=== PATIENT | female | born 1930 | race Caucasian/White ===

== ENCOUNTER 2018-11-13 11:59 | Inpatient (IN) | payer OTHER, MEDICARE ==
[~2018-11-13] VITALS: Ht 149.9 cm; Wt 92.1 kg
[2018-11-13] MEDS ORDERED: ONDANSETRON 4MG/2ML VIAL (J2405) IV ONE (13:00)
[2018-11-13] MEDS ORDERED: MULTCAP PO (13:06)
[2018-11-13] MEDS ORDERED: ELIQ5TAB PO (13:06)
[2018-11-13] MEDS ORDERED: HYDR12.55 PO (13:06)
[2018-11-13] MEDS ORDERED: PURE500C5 PO (13:06)
[2018-11-13] MEDS ORDERED: CIDA500T2 PO (13:06)
[2018-11-13] MEDS ORDERED: HUMA100I5 SC (13:06)
[2018-11-13] MEDS ORDERED: INVO100T PO (13:06)
[2018-11-13] MEDS ORDERED: SYNT112T2 PO (13:06)
[2018-11-13] MEDS ORDERED: LISI10TA4 PO (13:06)
[2018-11-13] MEDS ORDERED: TOPR100T PO (13:06)
[2018-11-13] MEDS ORDERED: TRIC145T22 PO (13:06)
[2018-11-13] MEDS ORDERED: D 101000 PO (13:06)
[2018-11-13] MEDS ORDERED: CALC1TAB53 PO (13:06)
[2018-11-13] MEDS ORDERED: ISOS30TA4 PO (13:06)
[2018-11-13] MEDS ORDERED: B COTAB3 PO (13:06)
[2018-11-13] MEDS ORDERED: DIAZ2TAB PO (13:06)
[2018-11-13] MEDS ORDERED: NITR0.4S14 SL (13:06)
[2018-11-13] MEDS ORDERED: LANTINJ4 SC (13:06)
[2018-11-13] MEDS ORDERED: VITA-157 PO (13:06)
[2018-11-13] MEDS: fentaNYL 100 MCG/2 ML INJECTION (J3010) IV PRN ×2 (13:23→15:02)
[2018-11-13] MEDS ORDERED: ISOVUE-370 76% 100ML VIAL (Q9967) As Ordered ONE (13:31)
[2018-11-13 13:39] LABS: HEMATOCRIT 48.2 % (36.0-47.0); HEMOGLOBIN 15.7 g/dl (12.0-15.5); MEAN CORPUSCULAR HEMOGLOBIN 29.3 pg (27.0-33.0); MEAN CORPUSCULAR HGB CONC 32.6 g/dl (32.0-36.5); MEAN CORPUSCULAR VOLUME 90.1 fl (80.0-96.0); PLATELET COUNT, AUTOMATED 294 10^3/uL (150-450); RED BLOOD COUNT 5.35 10^6/uL (4.00-5.40); WHITE BLOOD COUNT 12.8 10^3/uL (4.0-10.0)
--- NOTE | 2018-11-13 14:31 | REP ---
LEFT FOREARM TWO VIEWS: Two views of the left forearm are performed. There is a fracture of the mid to distal radius with posteromedial angulation. There is a fracture of the mid to distal ulna with overriding and posterior displacement, with posteromedial angulation. No other evidence of acute fracture or dislocation. Moderate arthritic changes are seen in the lateral intercarpal joints as well as at the joint between the trapezium and base of 1st metacarpal. Electronically Signed by Adan Valdez MD 11/14/2018 07:44 A
--- NOTE | 2018-11-13 14:52 | REP ---
CT HEAD WITHOUT CONTRAST: HISTORY: Trauma. An area of decreased attenuation is present in the left basal ganglia. This represents an old lacunar infarction. Areas of decreased attenuation are present in the periventricular and subcortical white matter. This represents small vessel ischemic disease. There is no intraparenchymal hemorrhage, mass or midline shift. The ventricular system and cortical sulci are dilated consistent with minimal volume loss. There is no extracerebral collection. There is no fracture. A small enostosis is present arising from the inner table of the inferior left frontal bone. Visualized sinuses are clear. IMPRESSION: 1. Old left basal ganglia lacunar infarction. 2. Small vessel ischemic disease. 3. Minimal volume loss. Electronically Signed by Fortino Sweeney MD 11/13/2018 06:05 P
--- NOTE | 2018-11-13 14:58 | REP ---
CT CERVICAL SPINE WITHOUT CONTRAST: HISTORY: Trauma. There is no acute fracture or subluxation. A disc bulge is present at the C3-4 level. Disc bulges with associated osteophyte formation are present at the C4-5 through C6-7 levels. There is minimal narrowing of the spinal canal. Uncinate process and/or facet hypertrophy are present at the C2-3 through C7-T1 levels. These findings produce minimal to severe narrowing of the neural foramina. The C5-6 and C6-7 intervertebral discs are decreased in height consistent with disc degeneration. Calcifications are present in the thyroid gland. A 1.8 cm mass is present superior to the right thyroid lobe. This most likely represents a lymph node. IMPRESSION: 1. There is no acute fracture or subluxation. 2. There is cervical spondylosis at the C2-3 through C7-T1 levels. 3. There is a 1.7 cm mass superior to the right thyroid lobe most consistent with a lymph node. Electronically Signed by Fortino Sweeney MD 11/13/2018 06:07 P
[2018-11-13 15:04] LABS: INR 1.12; PROTHROMBIN TIME 14.1 SECONDS (11.8-14.0)
[2018-11-13 15:05] LABS: PARTIAL THROMBOPLASTIN TIME 35.3 SECONDS (25.0-38.4)
[2018-11-13 15:09] LABS: BLOOD UREA NITROGEN 14 MG/DL (7-18); CARBON DIOXIDE LEVEL 26 MEQ/L (21-32); CHLORIDE LEVEL 109 MEQ/L (98-107); CREATININE FOR GFR 0.57 MG/DL (0.55-1.30); GLOMERULAR FILTRATION RATE > 60.0 (>32); GLUCOSE, FASTING 122 MG/DL (70-100); POTASSIUM SERUM 3.6 MEQ/L (3.5-5.1); SODIUM LEVEL 142 MEQ/L (136-145)
[2018-11-13] MEDS ORDERED: CALC-139 PO (15:37)
[2018-11-13] MEDS ORDERED: NYST1POW9 TOP (15:39)
--- NOTE | 2018-11-13 15:46 | REP ---
CT CHEST WITH IV CONTRAST: TECHNIQUE: Axial contrast enhanced images from the thoracic inlet to the upper abdomen using 100 mL Isovue 370 intravenous contrast material with multiplanar reformations. There is atherosclerotic calcification of the thoracic aorta without aneurysm or dissection. Heart is not enlarged. There is no pleural or pericardial effusion. I do not see significant adenopathy in the mediastinal or hilar regions. No axillary adenopathy is seen. Thyroid is heterogeneous in density. There is a small hiatal hernia. There is a calcified granuloma in the right lower lobe. There are dependent fibroatelectatic changes in the lungs. There are diffuse degenerative changes of the spine. There is a nondisplaced fracture of the anterior aspect of the right 3rd rib which is of indeterminate age. IMPRESSION: Nondisplaced fracture anterior right 3rd rib of indeterminate age. There is no other posttraumatic finding in the chest. Thoracic aorta is intact. No pleural effusion, pneumothorax or other abnormality. Electronically Signed by Adan Valdez MD 11/14/2018 07:51 A
--- NOTE | 2018-11-13 15:59 | REP ---
CT ABDOMEN AND PELVIS WITH IV CONTRAST: TECHNIQUE: Axial contrast enhanced images from the lung bases to the pubic symphysis using 100 mL Isovue 370 intravenous contrast material with multiplanar reformations. Liver demonstrates no mass or other abnormality. Patient has had a prior cholecystectomy. There is expected prominence of the common bile duct. Calcified granulomas are seen in the spleen. There are bilateral adrenal nodules. On the right an oval nodule measures 3.9 x 2.2 cm and on the left 2.9 x 1.6 cm. No pancreatic mass is seen. Small cysts are seen in the kidneys without hydronephrosis. The largest cyst is in the right lower pole measuring 2.6 cm in diameter. There is atherosclerotic calcification of the abdominal aorta without aneurysm. I see no adenopathy, free air, or free fluid. No bowel wall thickening is seen. There is colonic diverticulosis. No pelvic mass is seen. Patient appears to have had a hysterectomy. Urinary bladder appears intact. No fracture is seen of the visualized osseous structures. There are degenerative changes of the spine. IMPRESSION: No posttraumatic abnormalities identified. Bilateral adrenal nodules of uncertain significance. Further evaluation could be made with dedicated MRI of the adrenals. Small cysts in the kidneys. Colonic diverticulosis. No free air or free fluid. No evidence of fracture of the visualized osseous structures. Electronically Signed by Adan Valdez MD 11/14/2018 07:52 A
[2018-11-13] MEDS ORDERED: LR 1,000 ML IV SCH (17:03)
[2018-11-13] MEDS ORDERED: GLUCOSE 4 GM CHEW TABLET PO PRN (17:15)
[2018-11-13] MEDS ORDERED: ONDANSETRON 4MG/2ML VIAL (J2405) IV PRN (17:15)
[2018-11-13] MEDS ORDERED: DEXTROSE 50% 50 ML SYRINGE IV PRN (17:15)
[2018-11-13] MEDS ORDERED: GLUCAGON FOR INJ 1 MG VIAL (J1610) SC PRN (17:15)
[2018-11-13] MEDS: HumaLOG INSULIN (NovoLOG) PER UNIT SC SCH ×2 (17:30→21:00)
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
[2018-11-13] MEDS: NORCO, ANEXSIA 5/325MG TABLET (HYDROcodone/ACETAMINOPHEN) PO PRN (18:44)
[2018-11-13] MEDS ORDERED: diazePAM 2 MG TAB PO PRN (19:00)
[2018-11-13] MEDS ORDERED: PILL CUTTER 1 EACH XX PRN (19:00)
[2018-11-13] MEDS: METOPROLOL SUCC (TopROL XL) 100MG *XL* TAB PO SCH (19:32)
[2018-11-13] MEDS: ISOSORBIDE MON. (IMDUR) 30 MG XR TAB PO SCH (19:33)
[2018-11-13] MEDS: hydroCHLOROthiazide 12.5 MG CAPSULE PO SCH (19:33)
[2018-11-13] MEDS: IPRATROPIUM 0.5MG/ALBUTEROL 2.5MG INH SOL UD 3ML (DUONEB)(J7620) NEB SCH (20:00)
[2018-11-13 20:30] VITALS: BP 133/64
--- NOTE | 2018-11-13 21:42 | ECGEPIP ---
[facility] - ED Test Date: 2018-11-13 Pat Name: JESSE LEE Department: Room: - Gender: Female [employer] Worker: TC : 1930 Requested By: Osman White Order Number: [id number] Reading MD: Osman Ruby Measurements Intervals [place] Rate: 73 P: 73 MO: 191 QRS: 17 QRSD: 105 T: 46 QT: 373 QTc: 413 Interpretive Statements SINUS RHYTHM INCOMPLETE RIGHT BUNDLE BRANCH BLOCK BASELINE ARTIFACT AFFECTS INTERPRETATION NO PRIORS FOR COMPARISON Electronically Signed on 11-13-2018 21:42:25 EDT by Osman Ruby
[2018-11-13] MEDS: DOCUSATE SODIUM 100 MG CAP PO SCH (21:46)
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
[2018-11-13 23:59] VITALS: BP 123/60
[2018-11-14] VITALS (7 sets, daily range): BP systolic 132–179; BP diastolic 61–74; PULSE 84
[2018-11-14] MEDS: NORCO, ANEXSIA 5/325MG TABLET (HYDROcodone/ACETAMINOPHEN) PO PRN ×2 (03:41→09:25)
[2018-11-14 06:03] LABS: HEMOGLOBIN 14.2 g/dl (12.0-15.5); MEAN CORPUSCULAR HEMOGLOBIN 29.2 pg (27.0-33.0); MEAN CORPUSCULAR VOLUME 88.5 fl (80.0-96.0); PLATELET COUNT, AUTOMATED 274 10^3/uL (150-450); RED BLOOD COUNT 4.86 10^6/uL (4.00-5.40); WHITE BLOOD COUNT 10.7 10^3/uL (4.0-10.0)
[2018-11-14 06:12] LABS: BLOOD UREA NITROGEN 13 MG/DL (7-18); CARBON DIOXIDE LEVEL 29 MEQ/L (21-32); CHLORIDE LEVEL 105 MEQ/L (98-107); GLOMERULAR FILTRATION RATE > 60.0 (>32); GLUCOSE, FASTING 179 MG/DL (70-100); POTASSIUM SERUM 3.6 MEQ/L (3.5-5.1); SODIUM LEVEL 140 MEQ/L (136-145)
[2018-11-14] MEDS: LEVOTHYROXINE 112MCG TABLET (0.112MG) PO SCH (06:22)
[2018-11-14] MEDS: HumaLOG INSULIN (NovoLOG) PER UNIT SC SCH ×4 (07:30→22:56)
--- NOTE | 2018-11-14 07:43 | REP ---
BILATERAL KNEE SERIES: Five views of bilateral knees performed. No acute fracture or dislocation is seen bilaterally. There are bilateral total knee prostheses which appear to be in good position with no abnormal adjacent lucency at the osseous interfaces. Vascular calcifications are seen posteriorly. IMPRESSION: No acute fracture or dislocation. Electronically Signed by Adan Valdez MD 11/14/2018 10:11 A
[2018-11-14] MEDS: IPRATROPIUM 0.5MG/ALBUTEROL 2.5MG INH SOL UD 3ML (DUONEB)(J7620) NEB SCH ×4 (08:09→20:00)
[2018-11-14] MEDS ORDERED: ISOSORBIDE MON. (IMDUR) 30 MG XR TAB PO SCH (09:00)
[2018-11-14] MEDS ORDERED: hydroCHLOROthiazide 12.5 MG CAPSULE PO SCH (09:00)
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
[2018-11-14] MEDS: FENOFIBRATE 145 MG TAB (TRICOR) PO SCH (09:23)
[2018-11-14] MEDS: DOCUSATE SODIUM 100 MG CAP PO SCH ×2 (09:23→23:00)
[2018-11-14] MEDS: hydroCHLOROthiazide 12.5 MG CAPSULE PO SCH (09:23)
[2018-11-14] MEDS: ISOSORBIDE MON. (IMDUR) 30 MG XR TAB PO SCH (09:25)
[2018-11-14] MEDS: lisinopriL 10 MG TAB PO SCH (09:25)
[2018-11-14] MEDS: PANTOPRAZOLE 40MG TAB (PROTONIX) PO SCH (09:27)
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
[2018-11-14] MEDS ORDERED: ceFAZolin 1GM INJ (J0690 PER 500MG) As Ordered ONE (16:34)
[2018-11-14] MEDS ORDERED: fentaNYL 100 MCG/2 ML INJECTION (J3010) As Ordered ONE (16:38)
[2018-11-14] MEDS ORDERED: MIDAZOLAM INJ 2 MG/2 ML VIAL (J2250) As Ordered ONE ×2 (16:39→17:28)
[2018-11-14] MEDS ORDERED: ceFAZolin SOD 2 GM in IV 1 EA IV ONE (17:00)
[2018-11-14] MEDS ORDERED: ceFAZolin 2 GM/D5W 50 ML IV BAG (J0690 PER 500MG) As Ordered ONE (17:27)
[2018-11-14] MEDS ORDERED: LIDOCAINE 2% INJ 100 MG/5 ML SDV (FOR ANES.) As Ordered ONE (17:28)
[2018-11-14] MEDS ORDERED: fentaNYL 250 MCG/5 ML INJECTION (J3010) As Ordered ONE (17:28)
[2018-11-14] MEDS ORDERED: ROCURONIUM BROMIDE 50 MG/5 ML VIAL As Ordered ONE (17:28)
[2018-11-14] MEDS ORDERED: propofoL 200 MG/20 ML VIAL As Ordered ONE (17:28)
[2018-11-14] MEDS ORDERED: BUPIVACAINE/EPIN 0.25% 30 ML VIAL As Ordered ONE (18:15)
[2018-11-14] MEDS ORDERED: PHENYLephrine HCL 500 MCG/5 ML (100MCG/ML) SYRINGE (J2370) As Ordered ONE (18:49)
[2018-11-14] MEDS ORDERED: DESFLURANE 240 ML INHALANT As Ordered ONE (19:19)
[2018-11-14] MEDS ORDERED: KETOROLAC 60 MG/2 ML VIAL (J1885) As Ordered ONE (19:47)
[2018-11-14] MEDS ORDERED: ONDANSETRON 4MG/2ML VIAL (J2405) As Ordered ONE ×2 (19:47→20:53)
[2018-11-14] MEDS ORDERED: ACETAMINOPHEN 1000MG 100ML IV BTL (OFIRMEV) (J0131 PER 10MG) As Ordered ONE (19:47)
[2018-11-14] MEDS ORDERED: LABETALOL HCL 100 MG/20 ML VIAL As Ordered ONE (19:48)
[2018-11-14] MEDS ORDERED: SUGAMMADEX SODIUM 500 MG/5 ML VIAL (BRIDION) As Ordered ONE (20:00)
[2018-11-14] MEDS ORDERED: LR 1,000 ML IV SCH ×2 (21:00)
[2018-11-14] MEDS ORDERED: oxyCODONE 5MG TAB PO PRN (21:00)
[2018-11-14] MEDS ORDERED: ONDANSETRON 4MG/2ML VIAL (J2405) IV PRN (21:00)
[2018-11-14] MEDS ORDERED: fentaNYL 100 MCG/2 ML INJECTION (J3010) IV PRN (21:00)
--- NOTE | 2018-11-14 21:11 | REP ---
C-ARM VIEWS LEFT FOREARM: Two C-Arm views of the left forearm performed. Metallic plate and screws are seen in the radius and ulna at the fracture sites. Structures are well aligned. 13 seconds of fluoroscopy time utilized. Electronically Signed by Adan Valdez MD 11/15/2018 10:04 A
[2018-11-14] MEDS ORDERED: METOCLOPRAMIDE INJ 10MG/2ML VIAL (J2765) IV PRN (21:15)
[2018-11-14] MEDS ORDERED: METOCLOPRAMIDE INJ 10MG/2ML VIAL (J2765) As Ordered ONE (21:22)
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
[2018-11-14] MEDS ORDERED: NITROGLYCERIN 0.3 MG SUBL TAB SL STA (22:27)
[2018-11-14] MEDS ORDERED: ACETAMINOPHEN 500 MG TAB PO ONE (22:30)
[2018-11-14] MEDS: METOPROLOL SUCC (TopROL XL) 100MG *XL* TAB PO SCH (23:42)
[2018-11-15] VITALS (22 sets, daily range): BP systolic 118–160; BP diastolic 40–70; O2SAT 87–100
[2018-11-15 05:52] LABS: HEMATOCRIT 38.8 % (36.0-47.0); HEMOGLOBIN 12.9 g/dl (12.0-15.5); MEAN CORPUSCULAR HEMOGLOBIN 28.9 pg (27.0-33.0); MEAN CORPUSCULAR HGB CONC 33.2 g/dl (32.0-36.5); PLATELET COUNT, AUTOMATED 251 10^3/uL (150-450); RED BLOOD COUNT 4.46 10^6/uL (4.00-5.40); WHITE BLOOD COUNT 12.6 10^3/uL (4.0-10.0)
[2018-11-15] MEDS: LEVOTHYROXINE 112MCG TABLET (0.112MG) PO SCH (05:52)
[2018-11-15 06:18] LABS: BLOOD UREA NITROGEN 22 MG/DL (7-18); CARBON DIOXIDE LEVEL 28 MEQ/L (21-32); CHLORIDE LEVEL 103 MEQ/L (98-107); CREATININE FOR GFR 0.83 MG/DL (0.55-1.30); GLOMERULAR FILTRATION RATE > 60.0 (>32); GLUCOSE, FASTING 260 MG/DL (70-100); POTASSIUM SERUM 3.7 MEQ/L (3.5-5.1); SODIUM LEVEL 139 MEQ/L (136-145); TROPONIN I 0.07 NG/ML (< 0.10)
--- NOTE | 2018-11-15 07:49 | ECGEPIP ---
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
[2018-11-15] MEDS: IPRATROPIUM 0.5MG/ALBUTEROL 2.5MG INH SOL UD 3ML (DUONEB)(J7620) NEB SCH ×4 (07:58→20:31)
[2018-11-15] MEDS: HumaLOG INSULIN (NovoLOG) PER UNIT SC SCH ×4 (08:08→22:38)
[2018-11-15] MEDS: hydroCHLOROthiazide 12.5 MG CAPSULE PO SCH (08:09)
[2018-11-15] MEDS: lisinopriL 10 MG TAB PO SCH (08:09)
[2018-11-15] MEDS: FENOFIBRATE 145 MG TAB (TRICOR) PO SCH (08:09)
[2018-11-15] MEDS: ISOSORBIDE MON. (IMDUR) 30 MG XR TAB PO SCH (08:09)
[2018-11-15] MEDS: PANTOPRAZOLE 40MG TAB (PROTONIX) PO SCH (08:09)
[2018-11-15] MEDS: DOCUSATE SODIUM 100 MG CAP PO SCH ×2 (08:10→22:36)
[2018-11-15] MEDS: NORCO, ANEXSIA 5/325MG TABLET (HYDROcodone/ACETAMINOPHEN) PO PRN ×2 (14:08→22:37)
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
[2018-11-15] MEDS: METOPROLOL SUCC (TopROL XL) 100MG *XL* TAB PO SCH (17:11)
--- NOTE | 2018-11-15 17:39 | IPN ---
DATE: 11/15/2018 Patient overnight has been doing relatively well, although medicine has desired to keep her on telemetry at this point. They do feel that she has been relatively stable from a medical standpoint, however. Yesterday she went for her repair of her fracture in her forearm and today she is not in significant amount of pain and from a respiratory standpoint, she was on 2 liters but I took her off the oxygen (O2) earlier and she did not wean and she did not go below 92%. Will have them titrate for an oxygen saturation of 90 or greater. In any case, from a general surgery standpoint, rib fracture seems to be stable. She is not having any progressive dyspnea. She had some "chest pain" last night, although it did not seem cardiac in etiology, probably was muscle spasm associated with her rib fracture, and when she was talking about her pain from last night, it was on the right side. In any case, she has been tolerating a regular diet. She has been up and moving around with significant asist, but otherwise seemed to be stable. IMPRESSION AND PLAN: No new general surgical issues at this time. Needs to continue to mobilize and at this point, it sounds as though the family is trying to arrange rehabilitation closer to home and possibly arranging for this early next week. I believe they are waiting for a bed to be available. Otherwise, I will transfer the patient to Dr. Bauman as the hospitalist primary, and I will be available should there be any questions or concerns from my standpoint.
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
[2018-11-16] VITALS (17 sets, daily range): BP systolic 110–170; BP diastolic 65–100; O2SAT 91–99
[2018-11-16] MEDS ORDERED: METOPROLOL SUCC *XL* 25MG TAB (TopROL *XL*) PO ONE (03:00)
[2018-11-16] MEDS: NORCO, ANEXSIA 5/325MG TABLET (HYDROcodone/ACETAMINOPHEN) PO PRN ×3 (03:06→14:07)
[2018-11-16] MEDS: NITROGLYCERIN 0.3 MG SUBL TAB SL STA ×2 (03:27→03:42)
[2018-11-16 04:08] LABS: HEMATOCRIT 42.2 % (36.0-47.0); MEAN CORPUSCULAR HEMOGLOBIN 29.5 pg (27.0-33.0); MEAN CORPUSCULAR HGB CONC 33.2 g/dl (32.0-36.5); PLATELET COUNT, AUTOMATED 238 10^3/uL (150-450); RED BLOOD COUNT 4.74 10^6/uL (4.00-5.40); WHITE BLOOD COUNT 13.2 10^3/uL (4.0-10.0)
[2018-11-16 04:44] LABS: BLOOD UREA NITROGEN 21 MG/DL (7-18); CALCIUM LEVEL 9.2 MG/DL (8.8-10.2); CARBON DIOXIDE LEVEL 32 MEQ/L (21-32); CHLORIDE LEVEL 102 MEQ/L (98-107); CREATININE FOR GFR 0.62 MG/DL (0.55-1.30); GLOMERULAR FILTRATION RATE > 60.0 (>32); GLUCOSE, FASTING 265 MG/DL (70-100); POTASSIUM SERUM 3.7 MEQ/L (3.5-5.1); SODIUM LEVEL 139 MEQ/L (136-145)
[2018-11-16] MEDS ORDERED: ATROPINE SULF 1MG/10ML SYRINGE (J0461) IV PRN (04:45)
[2018-11-16] MEDS: LEVOTHYROXINE 112MCG TABLET (0.112MG) PO SCH (06:49)
[2018-11-16] MEDS: IPRATROPIUM 0.5MG/ALBUTEROL 2.5MG INH SOL UD 3ML (DUONEB)(J7620) NEB SCH ×4 (07:10→19:52)
[2018-11-16] MEDS: HumaLOG INSULIN (NovoLOG) PER UNIT SC SCH ×4 (07:47→22:18)
[2018-11-16] MEDS: DOCUSATE SODIUM 100 MG CAP PO SCH ×2 (08:09→22:17)
[2018-11-16] MEDS: hydroCHLOROthiazide 12.5 MG CAPSULE PO SCH (08:10)
[2018-11-16] MEDS: ISOSORBIDE MON. (IMDUR) 30 MG XR TAB PO SCH (08:10)
[2018-11-16] MEDS: PANTOPRAZOLE 40MG TAB (PROTONIX) PO SCH (08:10)
[2018-11-16] MEDS: FENOFIBRATE 145 MG TAB (TRICOR) PO SCH (08:11)
[2018-11-16] MEDS: lisinopriL 10 MG TAB PO SCH (08:11)
[2018-11-16] MEDS: APIXABAN 5 MG TAB (ELIQUIS) PO SCH ×2 (08:11→22:17)
[2018-11-16 08:31] LABS: ALBUMIN 3.2 GM/DL (3.2-5.2); ALT/SGPT 39 U/L (12-78); BILIRUBIN,DIRECT 0.2 MG/DL (0.0-0.2); BILIRUBIN,TOTAL 0.5 MG/DL (0.2-1.0); TOTAL PROTEIN 6.6 GM/DL (6.4-8.2)
[2018-11-16] MEDS: DIGOXIN INJ 0.5 MG/2 ML AMP (J1160) IV ONE ×2 (09:38→11:18)
--- NOTE | 2018-11-16 10:00 | REP ---
REASON: Hypoxia and bibasilar rales. PRIORS: None. The technique utilized in obtaining the radiograph has magnified the cardiac silhouette and accentuated the interstitial markings. Mild bibasilar patchy opacities are noted. There is slight bilateral CP angle blunting left greater than right. Cardiac silhouette is accentuated by technique. IMPRESSION: Bibasilar opacities as described above. Atelectasis/pneumonia/effusions. Electronically Signed by Ellis Severino DO 11/16/2018 09:19 A
--- NOTE | 2018-11-16 10:28 | ECGEPIP ---
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
--- NOTE | 2018-11-16 10:33 | ECGEPIP ---
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
[2018-11-16 12:22] LABS: CHOLESTEROL LEVEL 142 MG/DL (<200); CHOLESTEROL RISK RATIO 2.491 (<5); HDL CHOLESTEROL 57 MG/DL (>40); LDL CHOLESTEROL 62 MG/DL (<100); NON-HDL-C 85 MG/DL; TRIGLYCERIDES LEVEL 117 MG/DL (<150)
[2018-11-16] MEDS: KETOROLAC 30 MG/ML VIAL (J1885) IV SCH ×2 (16:08→22:18)
[2018-11-16] MEDS ORDERED: SLF 3 ML SYR IV PRN (17:00)
[2018-11-16] MEDS ORDERED: METOPROLOL SUCC (TopROL XL) 50MG **XL** TAB PO SCH (18:00)
[2018-11-16] MEDS: LevoFLOXacin IV 750 MG in IV 1 EA IV SCH (18:02)
[2018-11-16] MEDS ORDERED: LEVEMIR (INSULIN DETEMIR) 1 UNITS/0.01ML SC SCH (21:00)
[2018-11-16] MEDS: SLF 3 ML SYR IV SCH (22:18)
[2018-11-17] VITALS (27 sets, daily range): BP systolic 125–236; BP diastolic 70–101; O2SAT 88–98
[2018-11-17 05:32] LABS: HEMATOCRIT 42.3 % (36.0-47.0); HEMOGLOBIN 13.7 g/dl (12.0-15.5); MEAN CORPUSCULAR HEMOGLOBIN 28.7 pg (27.0-33.0); MEAN CORPUSCULAR HGB CONC 32.4 g/dl (32.0-36.5); MEAN CORPUSCULAR VOLUME 88.5 fl (80.0-96.0); PLATELET COUNT, AUTOMATED 251 10^3/uL (150-450); RED BLOOD COUNT 4.78 10^6/uL (4.00-5.40); WHITE BLOOD COUNT 10.2 10^3/uL (4.0-10.0)
[2018-11-17] MEDS: SLF 3 ML SYR IV SCH ×3 (05:37→21:54)
[2018-11-17] MEDS: KETOROLAC 30 MG/ML VIAL (J1885) IV SCH ×3 (05:37→17:09)
[2018-11-17] MEDS: LEVOTHYROXINE 112MCG TABLET (0.112MG) PO SCH (05:37)
[2018-11-17 05:55] LABS: BLOOD UREA NITROGEN 22 MG/DL (7-18); CALCIUM LEVEL 9.2 MG/DL (8.8-10.2); CARBON DIOXIDE LEVEL 34 MEQ/L (21-32); CHLORIDE LEVEL 101 MEQ/L (98-107); CREATININE FOR GFR 0.65 MG/DL (0.55-1.30); GLOMERULAR FILTRATION RATE > 60.0 (>32); GLUCOSE, FASTING 216 MG/DL (70-100); POTASSIUM SERUM 3.8 MEQ/L (3.5-5.1); SODIUM LEVEL 139 MEQ/L (136-145)
[2018-11-17] MEDS: IPRATROPIUM 0.5MG/ALBUTEROL 2.5MG INH SOL UD 3ML (DUONEB)(J7620) NEB SCH ×4 (07:13→21:30)
[2018-11-17] MEDS: HumaLOG INSULIN (NovoLOG) PER UNIT SC SCH ×4 (07:45→21:53)
[2018-11-17] MEDS: lisinopriL 10 MG TAB PO SCH (07:46)
[2018-11-17] MEDS: FENOFIBRATE 145 MG TAB (TRICOR) PO SCH (07:47)
[2018-11-17] MEDS: hydroCHLOROthiazide 12.5 MG CAPSULE PO SCH (07:47)
[2018-11-17] MEDS: ISOSORBIDE MON. (IMDUR) 30 MG XR TAB PO SCH (07:47)
[2018-11-17] MEDS: PANTOPRAZOLE 40MG TAB (PROTONIX) PO SCH (07:47)
[2018-11-17 07:48] LABS: TROPONIN I 0.41 NG/ML (< 0.10)
[2018-11-17] MEDS: DOCUSATE SODIUM 100 MG CAP PO SCH ×2 (07:48→21:54)
[2018-11-17] MEDS: APIXABAN 5 MG TAB (ELIQUIS) PO SCH (07:48)
[2018-11-17] MEDS: METOPROLOL 5 MG/5 ML VIAL IV SCH ×3 (10:31→10:44)
[2018-11-17] MEDS ORDERED: HumaLOG INSULIN (NovoLOG) PER UNIT SC ONE (12:30)
[2018-11-17] MEDS: METOPROLOL TART 50 MG TAB PO SCH ×2 (12:33→17:09)
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
[2018-11-17] MEDS ORDERED: DIGOXIN INJ 0.5 MG/2 ML AMP (J1160) IV STA (13:25)
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
[2018-11-17] MEDS: LEVEMIR (INSULIN DETEMIR) 1 UNITS/0.01ML SC SCH (21:53)
[2018-11-17] MEDS: ATORVASTATIN 20 MG TAB PO SCH (21:54)
[2018-11-17] MEDS: LOSARTAN 50 MG TAB PO SCH (21:54)
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
[2018-11-18] VITALS (33 sets, daily range): BP systolic 92–169; BP diastolic 44–76; O2SAT 88–98
[2018-11-18] MEDS: METOPROLOL TART 50 MG TAB PO SCH ×3 (00:13→12:35)
[2018-11-18] MEDS: KETOROLAC 30 MG/ML VIAL (J1885) IV SCH ×3 (00:14→12:34)
[2018-11-18] MEDS: SLF 3 ML SYR IV SCH ×3 (06:32→22:35)
[2018-11-18] MEDS: LEVOTHYROXINE 112MCG TABLET (0.112MG) PO SCH (06:33)
[2018-11-18 06:39] LABS: HEMATOCRIT 37.7 % (36.0-47.0); HEMOGLOBIN 12.2 g/dl (12.0-15.5); MEAN CORPUSCULAR HGB CONC 32.4 g/dl (32.0-36.5); MEAN CORPUSCULAR VOLUME 89.8 fl (80.0-96.0); PLATELET COUNT, AUTOMATED 257 10^3/uL (150-450); WHITE BLOOD COUNT 8.3 10^3/uL (4.0-10.0)
[2018-11-18 06:57] LABS: BLOOD UREA NITROGEN 20 MG/DL (7-18); CALCIUM LEVEL 8.8 MG/DL (8.8-10.2); CARBON DIOXIDE LEVEL 34 MEQ/L (21-32); CHLORIDE LEVEL 101 MEQ/L (98-107); CREATININE FOR GFR 0.67 MG/DL (0.55-1.30); GLOMERULAR FILTRATION RATE > 60.0 (>32); GLUCOSE, FASTING 185 MG/DL (70-100); POTASSIUM SERUM 3.7 MEQ/L (3.5-5.1); SODIUM LEVEL 140 MEQ/L (136-145)
[2018-11-18] MEDS: IPRATROPIUM 0.5MG/ALBUTEROL 2.5MG INH SOL UD 3ML (DUONEB)(J7620) NEB SCH ×4 (08:45→21:52)
[2018-11-18] MEDS: PANTOPRAZOLE 40MG TAB (PROTONIX) PO SCH (09:26)
[2018-11-18] MEDS: HumaLOG INSULIN (NovoLOG) PER UNIT SC SCH ×4 (09:26→21:00)
[2018-11-18] MEDS: LOSARTAN 50 MG TAB PO SCH ×2 (09:26→22:33)
[2018-11-18] MEDS: FENOFIBRATE 145 MG TAB (TRICOR) PO SCH (09:27)
[2018-11-18] MEDS: DOCUSATE SODIUM 100 MG CAP PO SCH ×2 (09:27→21:00)
[2018-11-18] MEDS: hydroCHLOROthiazide 12.5 MG CAPSULE PO SCH (09:27)
[2018-11-18] MEDS ORDERED: ceFAZolin SOD 2 GM in IV 1 EA IV ONE (12:00)
[2018-11-18] MEDS ORDERED: LIDOCAINE 1% SDV INJ 30 ML VIAL As Ordered ONE (12:47)
[2018-11-18] MEDS ORDERED: AMIODARONE 150MG/3ML INJ (J0282) As Ordered ONE (12:48)
[2018-11-18] MEDS ORDERED: ISOVUE-300 61% 50ML VIAL (Q9967) As Ordered ONE (12:48)
[2018-11-18] MEDS ORDERED: BACITRACIN PWD 50,000 UNITS VIAL As Ordered ONE (12:48)
[2018-11-18] MEDS ORDERED: dexameTHASONE 4 MG/ML 1ML VIAL (J1100) As Ordered ONE (12:57)
[2018-11-18] MEDS ORDERED: ONDANSETRON 4MG/2ML VIAL (J2405) As Ordered ONE (12:57)
[2018-11-18] MEDS ORDERED: LIDOCAINE 2% INJ 100 MG/5 ML SDV (FOR ANES.) As Ordered ONE (12:57)
[2018-11-18] MEDS ORDERED: propofoL 500 MG/50 ML VIAL As Ordered ONE (12:58)
[2018-11-18] MEDS ORDERED: KETAMINE HCL 200 MG/20 ML VIAL As Ordered ONE (12:58)
[2018-11-18] MEDS ORDERED: ceFAZolin 2 GM/D5W 50 ML IV BAG (J0690 PER 500MG) As Ordered ONE (13:11)
[2018-11-18] MEDS ORDERED: NITROGLYCERIN 2% OINT 1 GM *U/D* PKT TOP ONE (15:00)
[2018-11-18] MEDS ORDERED: NITROGLYCERIN 2% OINT 1 GM *U/D* PKT As Ordered ONE (15:02)
[2018-11-18] MEDS ORDERED: CARVedilol 12.5 MG TAB PO ONE (15:15)
[2018-11-18] MEDS ORDERED: CARVedilol 6.25 MG TAB As Ordered ONE (15:29)
[2018-11-18] MEDS ORDERED: CARVedilol 6.25 MG TAB PO ONE (15:30)
[2018-11-18] MEDS ORDERED: hydrALAZINE INJ 20 MG/ML VIAL As Ordered ONE (15:49)
[2018-11-18] MEDS: hydrALAZINE INJ 20 MG/ML VIAL IV SCH ×2 (15:50→16:35)
--- NOTE | 2018-11-18 16:15 | RO ---
DATE OF PROCEDURE: 11/18/2018 PREOPERATIVE DIAGNOSES: 1. 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 2. Paroxysmal atrial fibrillation. POSTOPERATIVE DIAGNOSES: 1. 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 2. Paroxysmal atrial fibrillation. PROCEDURE: Implantation of permanent dual-chamber pacemaker. SURGEON/IMPLANTING GREENHOUSE GROWER: Dr. Ab Houston MICROBIAL SPECIALIST: ANESTHESTIOLOGIST: Dr. Erickson TYPE OF ANESTHESIA: Monitored local anesthesia. DESCRIPTION OF PROCEDURE: In the fasting state following informed consent and Ancef 2 grams IV premedication, the patient was taken to the operating theater. Numerous skin electrodes were applied to facilitate continuous electrocardiographic monitoring. The left subclavian region was prepped and draped in the usual fashion, and the skin was infiltrated with 1% Xylocaine. The left axillary vein was catheterized using the micropuncture technique. A 5 cm linear incision was then made several centimeters below and parallel to the left clavicle. Dissection was carried down to the level of the pectoralis fascia, and a pocket was fashioned below the level of the incision line. Two bipolar screw-in active fixation steroid-eluting pacing leads were then positioned to the right ventricular apex and high anterior right atrial free wall under monitored and under EKG and fluoroscopic control. The ventricular lead ([employer], model number [id number], serial number [id number]) measurements were: Stimulation threshold 0.5 V/0.4 ms/impedance 883 ohms. The R wave amplitude measured 11.0 mV. The atrial lead placement was much more complicated; a total of five separate sites were tested prior to settling for the last. Curiously, though, intra-atrial electrograms showed excellent amplitude, pacing threshold in four of these sites was in excess of 5 volts at 0.4 milliseconds. The atrial lead ([employer], model number [id number], serial number [id number]) measurements were finally 1.7 V/0.6 ms/impedance 443 ohms. The P wave measured 4.8 mV. These leads were then secured in position using sleeves sutured at their insertion site. They were then connected to an MRI compatible dual-chamber pacemaker pulse generator ([employer] [facility], model number [id number], serial number [id number]) and appropriate DDD pacing was documented. The device was placed in the pocket and secured in position with a suture through the upper right hand corner of the epoxy header. The subcutaneous tissues were approximated using a running chromic suture, and the skin was closed using giovani. A dry dressing was applied, and the patient was returned to recovery room in good condition. No apparent complications. Estimated blood loss: 10 mL. Postoperative portable upright chest x-ray shows good lead position with no pneumothorax. Postoperative EKG is pending. At this point, she will return to her telemetry unit and be started on carvedilol 25 mg by mouth every 6 hours, hold for systolic blood pressure less than 140 mmHg. Her Eliquis oral anticoagulant therapy will be resumed November 20, 2018. JANNIE
[2018-11-18] MEDS ORDERED: LR 1,000 ML IV SCH (16:30)
[2018-11-18] MEDS ORDERED: ONDANSETRON 4MG/2ML VIAL (J2405) IV PRN (16:30)
[2018-11-18] MEDS: LevoFLOXacin IV 750 MG in IV 1 EA IV SCH (17:37)
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
--- NOTE | 2018-11-18 18:34 | REP ---
REASON: Status-post pacemaker insertion. COMPARISON: 01/14/2019. The technique utilized in obtaining the radiograph has magnified the cardiac silhouette and accentuated the interstitial markings. Since the last examination a dual-chamber bipolar pacemaker device has been placed. The leads are contiguous and appropriate. There is cardiomegaly accentuated by technique There is evidence of interstitial fibrosis accentuated by technique. There is a subtle opacity in the right upper lobe which is unchanged. There is a subtle opacity in the left upper lobe which represents a change from the prior exam. There is chronic bibasilar scarring status quo. There is no change in the osseous structures. IMPRESSION:1. Status post pacemaker insertion as described above. 2. Cardiomegaly accentuated by technique. 3. Chronic lung field changes but with a subtle new left upper lobe opacity suspicious for subsegmental atelectatic change. Correlate clinically and followup if necessary. Electronically Signed by Ellis Severino DO 11/19/2018 11:57 A
[2018-11-18] MEDS ORDERED: NS 500 ML IV ONE (19:00)
--- NOTE | 2018-11-18 19:16 | ECHO ---
DATE OF PROCEDURE: 11/17/2018 Date of : 1930 Age: 88 Gender: Female. Height: 59 inches Weight: 92 kg Body surface area: 1.85 meters squared Inpatient: Progressive care unit (PCU), room 3222 REFERRING PHYSICIAN: Dr. Oswaldo Bauman INDICATION: Murmur. Paroxysmal Atrial fibrillation. MEASUREMENTS: 2D Measurements: RV: 3.0 cm LV: 5.2 cm Septum: 1.3 cm Posterior wall: 1.3 cm Aortic root: 3.2 cm LA: 4.0 cm LVEF: 65%. Doppler Measurements: AV: 2.9 meters per second LVOT: 1.1 meters per second LVOT diameter: 2.2 cm Mean AV gradient: 20 mmHg Dimensionless index: 0.42 MV-E: 130, A: 110, EA ratio: 1.2:1 Early mitral deceleration time: 215 milliseconds E prime: 10, A prime: 11, E/E prime ratio: 13 Pulmonary capillary wedge pressure: 15 mmHg PV: 1.0 meters per second Pulmonary artery acceleration time: 113 milliseconds RVSP: 28 mmHg IVC: 2.0 cm COMMENT: Normal sinus rhythm without intraventricular conduction disturbance. Technically challenging study in light of the patient's body habitus but some diagnostically useful information was still obtained. M-mode and two-dimensional echocardiography was performed with pulsed, continuous wave, color flow and tissue Doppler studies. Mild concentric left ventricle hypertrophy with normal wall motion. Mildly dilated left atrium with impairment of left ventricular (LV) diastolic function and current estimated mean left atrial pressure upper limits of normal to slightly increased. Normal right heart chamber sizes and motion with currently normal estimated pulmonary arterial pressure. Normal inferior vena cava (IVC) size and collapse against an elevated central venous pressure. Mild calcific aortic stenosis without insufficiency. Normal aortic root size. Moderate degenerative changes of the mitral valvular apparatus without inflow tract obstruction and only very mild insufficiency. Normal appearing tricuspid valve with no more than mild insufficiency. No apparent intracardiac mass or pericardial effusion. MTDD
[2018-11-18] MEDS: ATORVASTATIN 20 MG TAB PO SCH (22:34)
[2018-11-18] MEDS: LEVEMIR (INSULIN DETEMIR) 1 UNITS/0.01ML SC SCH (22:34)
[2018-11-18] MEDS: ceFAZolin SOD 1 GM in D5W MINI-BAG PLUS 50 ML IV SCH (22:42)
[2018-11-19] VITALS (25 sets, daily range): BP systolic 138–163; BP diastolic 60–70; O2SAT 90–98
[2018-11-19] MEDS ORDERED: CARVedilol 12.5 MG TAB PO SCH
[2018-11-19] MEDS: METOPROLOL TART 25 MG TABLET PO SCH ×2 (00:16→06:00)
[2018-11-19] MEDS: NORCO, ANEXSIA 5/325MG TABLET (HYDROcodone/ACETAMINOPHEN) PO PRN ×2 (00:17→22:09)
[2018-11-19 05:34] LABS: HEMATOCRIT 38.6 % (36.0-47.0); HEMOGLOBIN 12.5 g/dl (12.0-15.5); MEAN CORPUSCULAR HEMOGLOBIN 29.2 pg (27.0-33.0); MEAN CORPUSCULAR HGB CONC 32.4 g/dl (32.0-36.5); MEAN CORPUSCULAR VOLUME 90.2 fl (80.0-96.0); PLATELET COUNT, AUTOMATED 257 10^3/uL (150-450); RED BLOOD COUNT 4.28 10^6/uL (4.00-5.40); WHITE BLOOD COUNT 8.3 10^3/uL (4.0-10.0)
[2018-11-19 05:55] LABS: BLOOD UREA NITROGEN 14 MG/DL (7-18); CALCIUM LEVEL 9.1 MG/DL (8.8-10.2); CARBON DIOXIDE LEVEL 35 MEQ/L (21-32); CHLORIDE LEVEL 104 MEQ/L (98-107); CREATININE FOR GFR 0.61 MG/DL (0.55-1.30); GLOMERULAR FILTRATION RATE > 60.0 (>32); GLUCOSE, FASTING 173 MG/DL (70-100); POTASSIUM SERUM 3.8 MEQ/L (3.5-5.1); SODIUM LEVEL 142 MEQ/L (136-145)
[2018-11-19] MEDS: ceFAZolin SOD 1 GM in D5W MINI-BAG PLUS 50 ML IV SCH ×2 (06:22→13:55)
[2018-11-19] MEDS: LEVOTHYROXINE 112MCG TABLET (0.112MG) PO SCH (06:22)
[2018-11-19] MEDS: SLF 3 ML SYR IV SCH ×3 (06:22→21:48)
[2018-11-19] MEDS: HumaLOG INSULIN (NovoLOG) PER UNIT SC SCH ×4 (07:40→21:48)
[2018-11-19] MEDS: IPRATROPIUM 0.5MG/ALBUTEROL 2.5MG INH SOL UD 3ML (DUONEB)(J7620) NEB SCH ×4 (08:51→21:16)
[2018-11-19] MEDS ORDERED: METOPROLOL TART 25 MG TABLET PO SCH (09:00)
[2018-11-19] MEDS: hydroCHLOROthiazide 12.5 MG CAPSULE PO SCH (09:26)
[2018-11-19] MEDS: DOCUSATE SODIUM 100 MG CAP PO SCH ×2 (09:26→21:49)
[2018-11-19] MEDS: DIGOXIN 0.25 MG TAB PO SCH (09:26)
[2018-11-19] MEDS: PANTOPRAZOLE 40MG TAB (PROTONIX) PO SCH (09:27)
[2018-11-19] MEDS: LOSARTAN 50 MG TAB PO SCH ×2 (09:28→21:47)
--- NOTE | 2018-11-19 11:05 | REP ---
Chest x-ray: Two views. History: Post pacemaker implant. Comparison study: November 18, 2018. Findings: Sitting AP and lateral views show a bipolar pacemaker in place via the left side. Skin giovani are noted superiorly adjacent to the power plant. There is no evidence of pneumothorax. There is some blunting of the posterior pleural angles bilaterally and the heart is mildly prominent. Pulmonary vasculature is cephalized. There is plate-like atelectasis versus linear fibrosis in the right base. There are advanced degenerative changes in the shoulders. Impression: Bipolar pacemaker in place. Small bilateral effusions. No evidence of pneumothorax. Electronically Signed by Mario Maloney MD 11/19/2018 07:32 P
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
[2018-11-19] MEDS ORDERED: ATOR1TAB21 PO (15:00)
[2018-11-19] MEDS ORDERED: COZA50TA PO (15:00)
[2018-11-19] MEDS ORDERED: DIGO0.253 PO (15:00)
[2018-11-19] MEDS ORDERED: METO1TAB87 PO (15:00)
[2018-11-19] MEDS: ACETAMINOPHEN TAB 650MG DOSE (2X325MG) PO PRN (17:35)
--- NOTE | 2018-11-19 19:47 | IPN ---
DATE: 11/19/2018 CARDIOLOGY PROGRESS NOTE SUBJECTIVE: The patient continues to progress well. Has been up in her room to the bathroom without chest discomfort, shortness of breath or dizziness. Has no more than minimal pacer incision tenderness. Remains free of any awareness of her heart action. OBJECTIVE: Pleasant, obese, elderly lady, sat comfortably in the bedside chair. Obvious forearm dressing. Heart rate 76 beats per minute, blood pressure 148/60 sitting, respiratory rate 18, oxygen saturation 95% on one liter of oxygen. Apparently will desaturate to 85% with weight today 91.5 kg, 202 pounds, body mass index (BMI) 40.7. No pallor or cyanosis. Normal oral moisture. Trachea midline. Neck veins did not appear to be elevated with her in the sitting position. Symmetrical chest expansion with no current inspiratory rales. Her pacer incision is healing well without erythema, swelling or discharge. Her dressing was changed. Continues to have stable lower extremity pitting edema. OUTREACH TEAM MEMBER: This shows consistent sinus rhythm. Most of the day her pacemaker has been sensing and inhibited. No paroxysmal supraventricular tachycardia/atrial fibrillation or flutter. EKG today again shows sinus rhythm with spontaneous atrioventricular (AV) conduction and narrow QRS complexes. Upright AP and lateral chest x-ray confirmed stable lead position without pneumothorax. She still has possible plate-like atelectasis versus linear fibrosis in the right base. No evidence of pneumonia. LABORATORY DATA: Blood work today shows stable hemoglobin of 12.5 without white blood cell count elevation, normal platelet count. Electrolytes were normal with stable metabolic alkalosis, BUN has improved to 14 from 20 yesterday prior to pacer implant. Creatinine is stable at 0.6/glucose 173. IMPRESSION/PLAN: 1. Paroxysmal atrial fibrillation/flutter: With her current medications now including digoxin and metoprolol, her resting heart rate is relatively rapid, so I will likely increase her metoprolol from 25 mg twice a day to 50 mg twice a day. Her digoxin therapy will remain 0.25 mg daily. We will plan on resuming her Eliquis 5 mg by mouth twice a day as of tomorrow morning. 2. Tachy-grace syndrome/dual-chamber pacemaker in situ: Her incision appears to be healing well. Chest x-ray confirms stable lead position and EKG and counter manager show appropriate device function. Complete pacemaker interrogation was performed this evening showing excellent intracardiac electrograms and pacing thresholds. We did make some adjustments in order to preserve her battery life, but also to try and prevent recurrent atrial fibrillation - her AF suppression mode was activated. She should be able to arrange for staple removal in [place] in approximately 7-10 days time. We will plan on arranging for a followup clinic visit, wound check in our office at the time she comes down for her cast removal on her left forearm in a few weeks. 3. Chest pain/abnormal EKG: As mentioned, she has been ambulating without problems. I still suspect that her previous bouts of chest discomfort were related to paroxysmal atrial tachyarrhythmia. I am confident with adequate negative chronotropic therapy, this will not be a problem. 4. Hypertensive heart disease (benign without heart failure): Recent echocardiogram does show left ventricle hypertrophy with left atrial enlargement and impairment of left ventricular (LV) diastolic function but currently normal estimated mean left atrial pressure. No present shortness of breath. Lung vera are clear clinically and radiographically. I am concerned about her oxygen saturation dropping with activity and suspect this may be related to her obesity and recent rib fracture. She may warrant discharge with supplemental oxygen by nasal prongs, at least temporarily. 5. Aortic valve disorder (nonrheumatic)/stenosis: Recent echocardiogram also shows some mild aortic stenosis, which is not apparently changed from echocardiographic study reviewed from [facility] in September. No specific measures would be deemed necessary beyond a followup echocardiogram in perhaps 2 years. 6. Body mass index 40: During our surgical procedure with only mild sedation, she did appear to obstruct and that may also be contributing to her oxygen desaturation, even at rest that the family has noted. Recent echocardiogram did not show right heart chamber enlargement or elevated pulmonary arterial pressure. Her lower leg swelling is related to peripheral venous insufficiency not right heart failure. I still believe it would be prudent to consider an official sleep study as an outpatient. I agree with her tentative transfer to rehab center tomorrow. I have requested that she perform only light activities of daily living with her left arm and avoid getting her incision wet until her giovani are removed. She should be following a modest salt and caloric restriction. We have discussed low-carbohydrate diet to help with weight reduction. We would encourage her ambulation. Medications from a cardiac standpoint were to include digoxin 0.25 mg by mouth daily, metoprolol tartrate 50 mg by mouth twice a day, losartan 50 mg by mouth twice a day, hydrochlorothiazide 12.5 mg daily, atorvastatin 40 mg nightly, and Eliquis 5 mg twice a day. As mentioned, we are trying to coordinate a followup clinic visit with us in approximately 3 weeks when she comes down for her orthopedic check. JANNIE
--- NOTE | 2018-11-19 20:40 | ECGEPIP ---
[facility] Test Date: 2018-11-18 Pat Name: JESSE LEE Department: Room: [place] [address] Gender: Female Hospital Coder: IDALMIS : 1930 Requested By: Ab Houston Order Number: [id number] Reading MD: Martin Miles Measurements Intervals [place] Rate: 64 P: 49 DE: 190 QRS: 15 QRSD: 83 T: 40 QT: 359 QTc: 372 Interpretive Statements SINUS RHYTHM MODERATE ST DEPRESSION MOST RECENT TRACING ON 11/16/2018 AT 9:23 A.M. ATRIAL FLUTTER WAS NOTED Electronically Signed on 11-19-2018 20:39:51 EDT by Martin Miles
--- NOTE | 2018-11-19 20:43 | ECGEPIP ---
[facility] Test Date: 2018-11-19 Pat Name: JESSE LEE Department: Room: [place] [address] Gender: Female Systems Development Consultant: IDALMIS : 1930 Requested By: Ab Houston Order Number: [id number] Reading MD: Martin Miles Measurements Intervals [place] Rate: 69 P: 52 LA: 199 QRS: 16 QRSD: 90 T: 29 QT: 371 QTc: 399 Interpretive Statements SINUS RHYTHM MODERATE ST DEPRESSION COMPARED TO THE PRIOR TRACING ON 11/18/2018 AT 1:29 P.M., UNREMARKABLE PATIENT REMAINS IN NORMAL SINUS RHYTHM Electronically Signed on 11-19-2018 20:42:39 EDT by Martin Miles
[2018-11-19] MEDS: ATORVASTATIN 20 MG TAB PO SCH (21:47)
[2018-11-19] MEDS: METOPROLOL TART 50 MG TAB PO SCH (21:47)
[2018-11-19] MEDS: LEVEMIR (INSULIN DETEMIR) 1 UNITS/0.01ML SC SCH (21:48)
[2018-11-20] VITALS (24 sets, daily range): BP systolic 145–176; BP diastolic 65–75; O2SAT 80–97
[2018-11-20 05:29] LABS: HEMATOCRIT 37.9 % (36.0-47.0); HEMOGLOBIN 12.5 g/dl (12.0-15.5); MEAN CORPUSCULAR HEMOGLOBIN 28.8 pg (27.0-33.0); MEAN CORPUSCULAR VOLUME 87.3 fl (80.0-96.0); PLATELET COUNT, AUTOMATED 274 10^3/uL (150-450); RED BLOOD COUNT 4.34 10^6/uL (4.00-5.40); WHITE BLOOD COUNT 8.8 10^3/uL (4.0-10.0)
[2018-11-20 05:52] LABS: BLOOD UREA NITROGEN 9 MG/DL (7-18); CARBON DIOXIDE LEVEL 33 MEQ/L (21-32); CHLORIDE LEVEL 102 MEQ/L (98-107); CREATININE FOR GFR 0.57 MG/DL (0.55-1.30); GLOMERULAR FILTRATION RATE > 60.0 (>32); GLUCOSE, FASTING 192 MG/DL (70-100); POTASSIUM SERUM 3.8 MEQ/L (3.5-5.1); SODIUM LEVEL 141 MEQ/L (136-145)
[2018-11-20] MEDS: SLF 3 ML SYR IV SCH ×3 (05:52→22:22)
[2018-11-20] MEDS: LEVOTHYROXINE 112MCG TABLET (0.112MG) PO SCH (05:52)
[2018-11-20] MEDS ORDERED: LOPR1TAB6 PO (07:23)
[2018-11-20] MEDS ORDERED: HYDR-4571 PO (07:31)
[2018-11-20] MEDS ORDERED: ZOFR4TAB16 PO (07:31)
[2018-11-20] MEDS: HumaLOG INSULIN (NovoLOG) PER UNIT SC SCH ×4 (07:38→22:21)
[2018-11-20] MEDS: IPRATROPIUM 0.5MG/ALBUTEROL 2.5MG INH SOL UD 3ML (DUONEB)(J7620) NEB SCH ×4 (07:50→19:28)
[2018-11-20] MEDS ORDERED: FUROSEMIDE 40 MG/4 ML VIAL (J1940) IV ONE ×2 (08:00→22:15)
[2018-11-20] MEDS: TORSEMIDE 10 MG TABLET PO SCH (09:30)
[2018-11-20] MEDS: APIXABAN 5 MG TAB (ELIQUIS) PO SCH ×2 (09:30→22:19)
[2018-11-20] MEDS: PANTOPRAZOLE 40MG TAB (PROTONIX) PO SCH (09:30)
[2018-11-20] MEDS: LOSARTAN 50 MG TAB PO SCH ×2 (09:31→22:19)
[2018-11-20] MEDS: METOPROLOL TART 50 MG TAB PO SCH ×2 (09:31→22:20)
[2018-11-20] MEDS: DOCUSATE SODIUM 100 MG CAP PO SCH ×2 (09:31→22:20)
[2018-11-20] MEDS: DIGOXIN 0.25 MG TAB PO SCH (09:31)
[2018-11-20] MEDS: POTASSIUM CHLORIDE 10 MEQ SR TABLET PO SCH (09:32)
[2018-11-20] MEDS: ACETAMINOPHEN TAB 650MG DOSE (2X325MG) PO PRN (15:51)
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
[2018-11-20] MEDS ORDERED: LevoFLOXacin 750 MG TABLET PO SCH (18:00)
[2018-11-20] MEDS: ATORVASTATIN 20 MG TAB PO SCH (22:20)
[2018-11-20] MEDS: LEVEMIR (INSULIN DETEMIR) 1 UNITS/0.01ML SC SCH (22:22)
[2018-11-21] VITALS (10 sets, daily range): BP systolic 126–150; BP diastolic 50–66; O2SAT 94–96
[2018-11-21] MEDS: LEVOTHYROXINE 112MCG TABLET (0.112MG) PO SCH (06:17)
[2018-11-21] MEDS: SLF 3 ML SYR IV SCH ×2 (06:20→12:17)
--- NOTE | 2018-11-21 07:07 | IPN ---
CARDIOLOGY PROGRESS NOTE DATE: 11/20/2018 SUBJECTIVE: Has been up with physical rehab earlier today and did quite well without chest discomfort, shortness of breath or dizziness, but did ultimately become quite fatigued. Has remained unaware of her heart action. Pacemaker incision is no longer tender. OBJECTIVE: Pleasant obese elderly lady lying comfortably in bed. Heart rate currently 76 bpm and regular, blood pressure 116/68 supine, respiratory rate 18, O2 saturation on supplemental oxygen by nasal prongs at 1 liter per minute was 96. She was afebrile. Her weight today was actually slightly up from yesterday. Continues to have lower leg swelling. ZINC SKIMMER: This has shown sinus rhythm with mostly spontaneous AV conduction, but intermittent ventricular paced complexes. BLOOD WORK: Hemoglobin stable at 12.5 and normal white blood cell count. Electrolyte balance with ongoing metabolic alkalosis suspected to be due to hypoventilation syndrome. BUN was down to 9, creatinine down to 0.57. IMPRESSION/PLAN: 1. Heart failure (diastolic/acute on chronic): I suspect her reduced O2 saturation is related to a degree of fluid overload. I gave her a dose of Lasix earlier today with good effect and will plan on repeating this tonight. I have also replaced her hydrochlorothiazide with torsemide along with KCL. This likely accounts for her ongoing systolic hypertension. 2. Paroxysmal atrial fibrillation: Has remained in sinus mechanism on combination metoprolol and digoxin. Eliquis was started earlier this morning. 3. Tachy-grace syndrome/dual-chamber pacemaker in situ: Her device appears to be functioning appropriately with AF suppression mode activated. 4. Chest pain/abnormal EKG: Has been ambulating without chest discomfort. As previously mentioned, I believe this symptom may have been related to paroxysmal atrial tachyarrhythmia and I am hoping we will be able to prevent this from recurring. 5. Hypertensive heart disease (benign with heart failure): As previously mentioned, has left ventricle hypertrophy with left atrial enlargement due to left ventricular diastolic dysfunction. I am hoping her systolic blood pressure will respond to diuretic adjustment as mentioned above with her present dose of metoprolol and losartan. 6. Aortic valve disorder (nonrheumatic/aortic stenosis): No auscultatory change from before. Undoubtedly contributing to her left ventricular diastolic dysfunction. 7. BMI 40: Undoubtedly has obstructive sleep apnea and we are hoping to arrange for outpatient sleep study. I am cautiously optimistic her O2 saturation will improve and blood pressure will be normalized with the above measures so that she be safely transferred to the rehab center in the morning.
[2018-11-21] MEDS: IPRATROPIUM 0.5MG/ALBUTEROL 2.5MG INH SOL UD 3ML (DUONEB)(J7620) NEB SCH ×2 (07:18→11:17)
[2018-11-21] MEDS ORDERED: POTA20TA6 PO (07:24)
[2018-11-21] MEDS ORDERED: TORS10TA3 PO (07:24)
[2018-11-21] MEDS: HumaLOG INSULIN (NovoLOG) PER UNIT SC SCH ×2 (08:11→12:16)
[2018-11-21] MEDS: APIXABAN 5 MG TAB (ELIQUIS) PO SCH (08:12)
[2018-11-21] MEDS: POTASSIUM CHLORIDE 10 MEQ SR TABLET PO SCH (08:12)
[2018-11-21] MEDS: LOSARTAN 50 MG TAB PO SCH (08:15)
[2018-11-21] MEDS: METOPROLOL TART 50 MG TAB PO SCH (08:16)
[2018-11-21] MEDS: PANTOPRAZOLE 40MG TAB (PROTONIX) PO SCH (08:16)
[2018-11-21] MEDS: TORSEMIDE 10 MG TABLET PO SCH (08:17)
[2018-11-21] MEDS: DOCUSATE SODIUM 100 MG CAP PO SCH (08:17)
[2018-11-21] MEDS: DIGOXIN 0.25 MG TAB PO SCH (08:17)
[2018-11-21 08:18] LABS: HEMATOCRIT 40.8 % (36.0-47.0); HEMOGLOBIN 13.2 g/dl (12.0-15.5); MEAN CORPUSCULAR HEMOGLOBIN 27.9 pg (27.0-33.0); MEAN CORPUSCULAR HGB CONC 32.4 g/dl (32.0-36.5); MEAN CORPUSCULAR VOLUME 86.3 fl (80.0-96.0); PLATELET COUNT, AUTOMATED 289 10^3/uL (150-450); RED BLOOD COUNT 4.73 10^6/uL (4.00-5.40); WHITE BLOOD COUNT 9.7 10^3/uL (4.0-10.0)
[2018-11-21 09:33] LABS: BLOOD UREA NITROGEN 12 MG/DL (7-18); CREATININE FOR GFR 0.65 MG/DL (0.55-1.30); GLOMERULAR FILTRATION RATE > 60.0 (>32); GLUCOSE, FASTING 262 MG/DL (70-100)
[2018-11-21 09:34] LABS: CALCIUM LEVEL 8.8 MG/DL (8.8-10.2); CARBON DIOXIDE LEVEL 34 MEQ/L (21-32); CHLORIDE LEVEL 98 MEQ/L (98-107); POTASSIUM SERUM 3.8 MEQ/L (3.5-5.1); SODIUM LEVEL 137 MEQ/L (136-145)
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
[2018-11-21] MEDS: ACETAMINOPHEN TAB 650MG DOSE (2X325MG) PO PRN (13:41)
== END 2018-11-21 13:42 | DRG 315 ==
LOC: EDBD 11:59 → M ED 11:59 → M ED INP 17:03 → M PCU 20:26
PROVIDERS: ADMIT Surgery; ATTEND Internal Medicine
PROC: 0PSL04Z Reposition Left Ulna with Internal Fixation Device, Open Approach (ICD-10-PCS; 2018-11-14)
PROC: 0PSJ04Z Reposition Left Radius with Internal Fixation Device, Open Approach (ICD-10-PCS; principal; 2018-11-14 18:00)
PROC: 0JH606Z Insertion of Pacemaker, Dual Chamber into Chest Subcutaneous Tissue and Fascia, Open Approach (ICD-10-PCS; 2018-11-18)
PROC: 02HK3JZ Insertion of Pacemaker Lead into Right Ventricle, Percutaneous Approach (ICD-10-PCS; 2018-11-18)
PROC: 02H63JZ Insertion of Pacemaker Lead into Right Atrium, Percutaneous Approach (ICD-10-PCS; 2018-11-18)
DX: S52.322A Displaced transverse fracture of shaft of left radius, initial encounter for closed fracture (principal); I50.33 Acute on chronic diastolic (congestive) heart failure; I48.92 Unspecified atrial flutter; I49.5 Sick sinus syndrome; Z68.41 Body mass index [BMI] 40.0-44.9, adult; S22.31XA Fracture of one rib, right side, initial encounter for closed fracture; S52.222A Displaced transverse fracture of shaft of left ulna, initial encounter for closed fracture; I11.0 Hypertensive heart disease with heart failure; I48.0 Paroxysmal atrial fibrillation; E11.9 Type 2 diabetes mellitus without complications; I35.0 Nonrheumatic aortic (valve) stenosis; V43.52XA Car driver injured in collision with other type car in traffic accident, initial encounter; E78.00 Pure hypercholesterolemia, unspecified; E89.0 Postprocedural hypothyroidism; I87.2 Venous insufficiency (chronic) (peripheral); M54.5 Low back pain; E66.9 Obesity, unspecified; F41.9 Anxiety disorder, unspecified; Z79.4 Long term (current) use of insulin; Z79.899 Other long term (current) drug therapy; Z96.653 Presence of artificial knee joint, bilateral; Z90.49 Acquired absence of other specified parts of digestive tract; Z87.891 Personal history of nicotine dependence; Z98.49 Cataract extraction status, unspecified eye; Y92.410 Unspecified street and highway as the place of occurrence of the external cause; Z79.01 Long term (current) use of anticoagulants

== ENCOUNTER → 2020-05-31 | Outpatient (REF) | payer MEDICARE, OTHER ==
[~2020-05-31] MED LIST: ATOR1TAB21 PO; B COTAB3 PO; CALC-139 PO; CALC1TAB53 PO; CIDA500T2 PO; COZA50TA PO; D 101000 PO; DIAZ2TAB PO; DIGO0.253 PO; ELIQ5TAB PO; HUMA100I5 SC; HYDR-4571 PO; HYDR12.55 PO; INVO100T PO; ISOS1TAB35 PO; LANTINJ4 SC; LISI10TA22 PO; LOPR1TAB6 PO; METO1TAB87 PO; MULTCAP PO; NITR0.4S14 SL; NYST1POW9 TOP; POTA20TA6 PO; PURE500C5 PO; SYNT112T2 PO; TOPR100T PO; TORS10TA3 PO; TRIC145T22 PO; VITAE40CA PO; ZOFR4TAB16 PO
== END ==
LOC: M LAB REF 19:05
PROVIDERS: ATTEND Dermatology
DX: D03.59 Melanoma in situ of other part of trunk (principal)